=== PATIENT | female | born 1970 | race Caucasian/White ===

== ENCOUNTER 2017-12-06 17:13 | Emergency (ER) | payer SELFPAY ==
[~2017-12-06] VITALS: Ht 167.6 cm; Wt 95.0 kg
[~2017-12-06 17:13] MED LIST: ACET500T97 PO; CEPH500C2 PO; IBUP-2028 PO; ONDA4TAB5 PO
[2017-12-06 18:32] LABS: BASOPHILS % 0.8 % (0.0-2.0); EOSINOPHILS % 0.3 % (0.0-5.0); HEMATOCRIT. 36.6 % (36.0-48.0); HEMOGLOBIN. 12.3 g/dL (12.0-16.0); LYMPHOCYTES % 12.2 % (20.0-50.0); MEAN CORPUSCULAR HEMOGLOBIN 27.7 pg (28.0-32.0); MEAN CORPUSCULAR VOLUME 82.9 fL (81.0-99.0); MEAN PLATELET VOLUME 8.2 fl (7.4-10.4); MONOCYTES % 5.4 % (2.0-8.0); NEUTROPHILS % 81.3 % (40.0-76.0); PLATELET 103 x1000/uL (130-400); RED BLOOD CELL COUNT 4.42 mill/uL (4.2-5.4); RED CELL DISTRIBUTION WIDTH 13.1 % (11.6-14.6)
[2017-12-06 18:36] LABS: CHLORIDE 105 mEq/L (98-107); INR 1.1; PROTHROMBIN TIME 11.3 sec (9.4-11.6)
[2017-12-06 19:15] LABS: CLARITY URINE CLOUDY (CLEAR); COLOR URINE DARK YELLOW (YELLOW); KETONES URINE 2+ (NEGATIVE); LEUKOCYTE ESTERASE URINE 3+ (NEGATIVE); NITRITE URINE NEGATIVE (NEGATIVE); OCCULT BLOOD URINE 3+ (NEGATIVE); PH URINE 5.5 (4.5-8.0); PROTEIN URINE 1+ (NEGATIVE); SPECIFIC GRAVITY URINE 1.023 (1.005-1.030)
[2017-12-07] MEDS ORDERED: LIDOCAINE HCL 1% 20ML VIAL (Pyxis) INJ INFIL ONE (09:00)
[2017-12-07] MEDS ORDERED: CEFTRIAXONE SODIUM 250 MG/VIAL IM ONE (09:00)
[2017-12-07] MEDS ORDERED: LIDOCAINE HCL/PF 1% 10 MG/ML 5ML VIAL ONE (09:16)
[2017-12-07 11:11] VITALS: BP 118/77
== END 2017-12-07 11:13 | disposition home or self-care (01) ==
LOC: ER 18:12
DX: N73.9 Female pelvic inflammatory disease, unspecified (principal); N39.0 Urinary tract infection, site not specified; K76.0 Fatty (change of) liver, not elsewhere classified
CPT/HCPCS: 36415; 74176; 80053; 81003; 83690; 85025; 85610; 87077; 87086; 87186; 96372; 99285; J0696; J3490